=== PATIENT | female | born 1970 | race Caucasian/White ===

== ENCOUNTER → 2016-07-16 | Outpatient (CLI) | payer BC ==
[2016-05-26 14:20] VITALS: BP 120/62
[~2016-07-16] MED LIST: ALBU0.63 IH; ALPR2TAB5 PO; CHOL100013 PO; CIPR500T94 PO; CITA20TA5 PO; CYCL10TA2 PO; DICL75TA PO; FERR-26 PO; HYDR-2666 PO; L.AC1CAP6 PO; LOSA25TA4 PO; MECL25TA3 PO; METF500T4 PO; METH-39 PO; ONDA4TAB10 SL; PHEN-373 PO; PROAIR HFA8.5 GM INH; TAMS0.4C97 PO
--- NOTE | 2016-07-16 14:26 | RAD ---
Indication breast tenderness. The area of tenderness in the left breast was examined. The 12 to 3:00 position was evaluated as well the left axilla. No abnormality is seen. IMPRESSION: Normal targeted ultrasound evaluation of the left breast
--- NOTE | 2016-07-20 09:01 | RAD ---
DATE: 07/16/2016 EXAM: DIGITAL DIAGNOSTIC BILATERAL HISTORY: Left breast pain COMPARISON: 08/20/2014 This study was interpreted with the benefit of Computerized Aided Detection (CAD ). FINDINGS: The breast parenchyma shows scattered fibroglandular densities. Breast parenchyma level B. Biopsy clips are noted in the left breast. Asymmetric density in the left breast is unchanged. Overall a significant change in the appearance of the breasts is not seen. IMPRESSION: Benign findings BI-RADS CATEGORY: 2 BENIGN FINDING(S) RECOMMENDED FOLLOW-UP: 07/16/2017 PQRS compliance statement: Patient information was entered into a reminder system with a target due date for the next mammogram. Mammography is a sensitive method for finding small breast cancers, but it does not detect them all and is not a substitute for careful clinical examination. A negative mammogram does not negate a clinically suspicious finding and should not result in delay in biopsying a clinically suspicious abnormality. "Our facility is accredited by the [employer] Mammography Program." [facility]
== END | disposition home or self-care (01) ==
LOC: MAMMO 12:33
PROVIDERS: ATTEND Obstetrics & Gynecology
DX: N64.4 Mastodynia (principal)
CPT/HCPCS: 76641; G0204; 77066

== ENCOUNTER → 2017-07-16 | Outpatient (CLI) | payer OTHER | END | disposition home or self-care (01) | LOC: MAMMO 10:44 | DX: Z12.31 Encounter for screening mammogram for malignant neoplasm of breast (principal) | CPT/HCPCS: 77067 ==

== ENCOUNTER 2018-03-06 15:27 | Inpatient (IN) | payer OTHER ==
[~2018-03-06] VITALS: Ht 162.6 cm; Wt 96.4 kg
[~2018-03-06 15:27] MED LIST changes: -CITA20TA5 PO; +CITA20TA6 PO; -FERR-26 PO; +FERR325T14 PO; -HYDR-2666 PO; +HYDR-2758 PO; -LOSA25TA4 PO; +LOSA25TA5 PO; +METF500T16 PO; -METF500T4 PO; -PHEN-373 PO; +PHEN-444 PO
[2018-03-06 16:00] LABS: BASO % 0 % (0-3); EOS # 0.1 x10^3/uL (0.0-0.7); EOS % 1 % (0-3); HEMATOCRIT 44.7 % (36.0-47.0); HEMOGLOBIN 15.5 g/dL (12.0-15.5); LYMPH # 2.6 x10^3/uL (1.0-4.8); LYMPH % 32 % (24-48); MEAN CORPUSCULAR HEMOGLOBIN 29 pg (25-35); MEAN CORPUSCULAR HGB CONC 35 g/dL (31-37); MEAN CORPUSCULAR VOLUME 85 fL (79-100); MONO # 0.4 x10^3/uL (0.0-1.1); MONO % 5 % (0-9); NEUT # 5.2 x10^3uL (1.8-7.7); NEUT % 62 % (31-73); PLATELET COUNT 219 x10^3/uL (140-400); RED BLOOD COUNT 5.26 x10^6/uL (3.50-5.40); WHITE BLOOD COUNT 8.3 x10^3/uL (4.0-11.0)
[2018-03-06 16:06] LABS: CALCIUM 9.6 mg/dL (8.5-10.1); CREATININE 0.9 mg/dL (0.6-1.0); GFR 67.4; POTASSIUM 3.9 mmol/L (3.5-5.1)
--- NOTE | 2018-03-06 16:08 | PHYS DOC ---
Past Medical History Past Medical History: Anemia, Anxiety, Cancer, Diabetes-Type II, Hypertension Additional Past Medical Histor: Vertigo, Back/Neck Pain, Endometriosis, Sleep Apnea, Uterine Ca Past Surgical History: Hysterectomy, Tubal ligation Additional Past Surgical Histo: Bladder Sling, L1-L5 Fusion Alcohol Use: None Drug Use: None Adult General Chief Complaint Chief Complaint: CHEST PAIN HPI HPI Patient is a 47 year old female who presents with plane of left-sided substernal chest pain in the last 2 hours while shopping. Patient states she does have a history of high pretension as well as diabetes and is compliant with all of her medications. Patient states that she developed sharp pain lasting for seconds at a time occurring multiple episodes over about 20 minutes while shopping with radiation to her neck. Patient has had no previous neck injury or pain states she did have a history of lumbar disc fusion after breaking her back secondary to trauma. Patient states currently she is pain free and is here for further evaluation and management. Patient states she has no previous cardiac issues and has never had a cardiac workup. Review of Systems Review of Systems Constitutional: Denies fever or chills [] Eyes: Denies change in visual acuity, redness, or eye pain [] HENT: Denies nasal congestion or sore throat [] Respiratory: Denies cough or shortness of breath [] Cardiovascular: No additional information not addressed in HPI [] GI: Denies abdominal pain, nausea, vomiting, bloody stools or diarrhea [] : Denies dysuria or hematuria [] Musculoskeletal: Denies back pain or joint pain [] Integument: Denies rash or skin lesions [] Neurologic: Denies headache, focal weakness or sensory changes [] Endocrine: Denies polyuria or polydipsia [] All other systems were reviewed and found to be within normal limits, except as documented in this note. Current Medications Current Medications Current Medications Medications (Trade) Dose Ordered Sig/Jenifer Start Time Stop Time Status Last Admin Dose Admin Aspirin (Children'S Aspirin) 324 mg 1X ONCE 03/06/18 16:15 03/06/18 16:16 DC 03/06/18 16:36 324 MG Nitroglycerin (Nitrostat) 0.4 mg PRN Q5MIN PRN 03/06/18 16:15 Sodium Chloride 1,000 ml @ 125 mls/hr 1X ONCE 03/06/18 16:15 03/07/18 00:14 03/06/18 16:37 125 MLS/HR Allergies Allergies Allergies Coded Allergies Type Severity Reaction Last Updated Verified cinnamon Allergy Unknown Swelling 05/26/16 Yes Physical Exam Physical Exam Constitutional: Well developed, well nourished, no acute distress, non-toxic appearance. [] HENT: Normocephalic, atraumatic, bilateral external ears normal, oropharynx moist, no oral exudates, nose normal. [] Eyes: PERRLA, EOMI, conjunctiva normal, no discharge. [] Neck: Normal range of motion, no tenderness, supple, no stridor. [] Cardiovascular:Heart rate regular rhythm, no murmur [] Lungs & Thorax: Bilateral breath sounds clear to auscultation [] Abdomen: Bowel sounds normal, soft, no tenderness, no masses, no pulsatile masses. [] Skin: Warm, dry, no erythema, no rash. [] Back: No tenderness, no CVA tenderness. [] Extremities: No tenderness, no cyanosis, no clubbing, ROM intact, no edema. [] Neurologic: Alert and oriented X 3, normal motor function, normal sensory function, no focal deficits noted. [] Psychologic: Affect normal, judgement normal, mood normal. [] Current Patient Data Vital Signs Vital Signs Date Time Temp Pulse Resp B/P (MAP) Pulse Ox O2 Delivery O2 Flow Rate FiO2 03/06/18 15:43 97.8 92 20 140/85 (103) 93 Room Air 97.8 Lab Values Laboratory Tests Test 03/06/18 15:45 03/06/18 15:59 03/06/18 16:25 White Blood Count 8.3 x10^3/uL (4.0-11.0) Red Blood Count 5.26 x10^6/uL (3.50-5.40) Hemoglobin 15.5 g/dL (12.0-15.5) Hematocrit 44.7 % (36.0-47.0) Mean Corpuscular Volume 85 fL (79-100) Mean Corpuscular Hemoglobin 29 pg (25-35) Mean Corpuscular Hemoglobin Concent 35 g/dL (31-37) Red Cell Distribution Width 14.0 % (11.5-14.5) Platelet Count 219 x10^3/uL (140-400) Neutrophils (%) (Auto) 62 % (31-73) Lymphocytes (%) (Auto) 32 % (24-48) Monocytes (%) (Auto) 5 % (0-9) Eosinophils (%) (Auto) 1 % (0-3) Basophils (%) (Auto) 0 % (0-3) Neutrophils # (Auto) 5.2 x10^3uL (1.8-7.7) Lymphocytes # (Auto) 2.6 x10^3/uL (1.0-4.8) Monocytes # (Auto) 0.4 x10^3/uL (0.0-1.1) Eosinophils # (Auto) 0.1 x10^3/uL (0.0-0.7) Basophils # (Auto) 0.0 x10^3/uL (0.0-0.2) Sodium Level 142 mmol/L (136-145) Potassium Level 3.9 mmol/L (3.5-5.1) Chloride Level 106 mmol/L (98-107) Carbon Dioxide Level 24 mmol/L (21-32) Anion Gap 12 (6-14) 15 mmol/L (6-14) H Blood Urea Nitrogen 15 mg/dL (7-20) Creatinine 0.9 mg/dL (0.6-1.0) Estimated GFR (Cockcroft-Gault) 67.4 BUN/Creatinine Ratio 17 (6-20) Glucose Level 130 mg/dL (70-99) H 109 mg/dL (70-99) H Calcium Level 9.6 mg/dL (8.5-10.1) Total Bilirubin 0.3 mg/dL (0.2-1.0) Aspartate Amino Transferase (AST) 33 U/L (15-37) Alanine Aminotransferase (ALT) 57 U/L (14-59) Alkaline Phosphatase 80 U/L (46-116) Troponin I Quantitative < 0.017 ng/mL (0.000-0.055) Total Protein 7.6 g/dL (6.4-8.2) Albumin 3.6 g/dL (3.4-5.0) Albumin/Globulin Ratio 0.9 (1.0-1.7) L Glucose (Fingerstick) 112 mg/dL (70-99) H POC Hemoglobin 14.3 g/dL (12-15) POC Hematocrit 42 % (36-40) H POC Sodium 141 mmol/L (135-145) POC Potassium 4.6 mmol/L (3.5-5.0) POC Chloride 108 mmol/L (98-110) POC Total CO2 23 mmol/L (23-32) POC Blood Urea Nitrogen 18 mg/dL (8-26) POC Creatinine 0.6 mg/dL (0.5-1.4) POC Ionized Calcium (Matheus) 1.21 mmol/L (1.13-1.32) Laboratory Tests 03/06/18 15:45 Laboratory Tests 03/06/18 15:45 03/06/18 16:25 EKG EKG Normal sinus rhythm at a rate of 84[] Radiology/Procedures Radiology/Procedures [facility] [address] [place] [address] IMAGING REPORT Signed PATIENT: RAUDEL MORRIS ACCOUNT: [id number] : 1970 LOCATION: ER AGE: 47 SEX: F EXAM STATUS: REG ER ORD. PHYSICIAN: RAJAT BEATTY MD REASON: CP PROCEDURE: PORTABLE CHEST 1V EXAM: CHEST 1 VIEW History: Chest pain COMPARISON: 06/16/2007 TECHNIQUE: Single portable radiograph of the chest FINDINGS: The cardiac silhouette is unremarkable. The lungs are clear bilaterally. The costophrenic sulci are clear and well demarcated. IMPRESSION: No radiographic evidence of an acute cardiopulmonary process. Electronically signed by: Derrick Melendez MD (03/06/2018 4:33 PM) [facility] DICTATED and SIGNED BY: DERRICK MELENDEZ MD DATE: 03/06/18 1632 [] Course & Med Decision Making Course & Med Decision Making Pertinent Labs and Imaging studies reviewed. (See chart for details) [] Dragon Disclaimer Dragon Disclaimer This electronic medical record was generated, in whole or in part, using a voice recognition dictation system. Departure Departure Impression: Primary Impression: Chest pain Disposition: ADMITTED INPATIENT Admitting Physician: Vipul Álvarez Condition: STABLE Referrals: JEIMY RAYO (PCP) RAJAT BEATTY MD Mar 06, 2018 16:08
[2018-03-06 16:12] LABS: ALBUMIN 3.6 g/dL (3.4-5.0); ALBUMIN/GLOBULIN RATIO 0.9 (1.0-1.7); TOTAL BILIRUBIN 0.3 mg/dL (0.2-1.0); TOTAL PROTEIN 7.6 g/dL (6.4-8.2)
[2018-03-06] MEDS ORDERED: IV NORMAL SALINE 1000ML BAG 1,000 ML IV ONE (16:15)
[2018-03-06] MEDS ORDERED: NITROGLYCERIN SUBLINGUAL 0.4 MG BOTTLE OF 25. SL PRN ×2 (16:15→16:45)
[2018-03-06] MEDS ORDERED: ASPIRIN CHEWABLE 81 MG TABLET. PO ONE (16:15)
--- NOTE | 2018-03-06 16:28 | EKG ---
[facility] [address] [place] [address] Test Date: 2018-03-06 Test Time: 15:35:34 Pat Name: RAUDEL MORRIS Department: Room: Gender: F [employer]: : 1970 Requested By: RAJAT BEATTY Order Number: [id number] Reading MD: Bart Gaxiola MD Measurements Intervals [place] Rate: 83 P: 47 [place]: 130 QRS: 46 QRSD: 78 T: 44 QT: 360 QTc: 428 Interpretive Statements SINUS RHYTHM Electronically Signed On 03-07-2018 14:03:10 CDT by Bart Gaxiola MD
[2018-03-06 16:31] LABS: CREATININE ISTAT 0.6 mg/dL (0.5-1.4); HEMOGLOBIN ISTAT 14.3 g/dL (12-15); ION CA ISTAT 1.21 mmol/L (1.13-1.32); POTASSIUM ISTAT 4.6 mmol/L (3.5-5.0)
--- NOTE | 2018-03-06 16:37 | RAD ---
EXAM: CHEST 1 VIEW History: Chest pain COMPARISON: 06/16/2007 TECHNIQUE: Single portable radiograph of the chest FINDINGS: The cardiac silhouette is unremarkable. The lungs are clear bilaterally. The costophrenic sulci are clear and well demarcated. IMPRESSION: No radiographic evidence of an acute cardiopulmonary process. Electronically signed by: Derrick Melendez MD (03/06/2018 4:33 PM) [facility]
[2018-03-06] MEDS ORDERED: ONDANSETRON PF 4 MG/2 ML VIAL. IV PRN (16:45)
[2018-03-06] MEDS ORDERED: MORPHINE SULFATE 4 MG/ML VIAL. IV PRN (16:45)
[2018-03-06 16:50] LABS: BILIRUBIN,URINE NEGATIVE (NEG); CLARITY,URINE CLEAR; COLOR,URINE YELLOW; NITRITE,URINE NEGATIVE (NEG); PROTEIN,URINE NEGATIVE (NEG-TRACE)
[2018-03-06 17:04] LABS: BACTERIA,URINE FEW /HPF (0-FEW); RBC,URINE OCC /HPF (0-2); SQUAMOUS EPITHELIAL CELL,UR MOD /LPF; WBC,URINE OCC /HPF (0-4)
[2018-03-06] MEDS ORDERED: NON FORMULARY ITEM (Albuterol Sulfate (Proair Hfa Inhaler) 1 PUFF) INH PRN (17:15)
[2018-03-06] MEDS ORDERED: HYDROcodone/APAP 5/325MG 1 TAB TABLET PO PRN (17:15)
[2018-03-06] MEDS ORDERED: DEXTROSE 50% 25 GM / 50ML DISP.SYRIN. IV PRN (17:30)
[2018-03-06] MEDS ORDERED: ZOLPIDEM 5 MG TABLET. PO PRN (17:30)
[2018-03-06] MEDS ORDERED: PANTOPRAZOLE 40 MG TABLET.DR. PO ONE (17:30)
[2018-03-06] MEDS: PHENAZOPYRIDINE 200 MG TABLET. PO SCH ×2 (17:45→20:16)
[2018-03-06] MEDS ORDERED: MECLIZINE HCL 12.5 MG TABLET. PO PRN (17:45)
--- NOTE | 2018-03-06 17:47 | PDOC1 ---
History and Physical Date of Admission Date of Admission 03/06/18 Identification/Chief Complaint Chief Complaint chest pain Source Source: Chart review, Patient History of Present Illness History of Present Illness Patient is a 47 year old female came in complaining of left-sided substernal chest pain in the last 2 hours while shopping. Patient states she does have a history of HTN as well as diabetes takes medication regularly . Patient states that she developed sharp pain lasting for seconds at a time occurring multiple episodes over about 20 minutes while shopping with radiation to her neck. she had neck pain before but this was slightly different, she has a history of lumbar disc fusion after breaking her back secondary to trauma. she does not have any pain now. Patient states she has no previous cardiac issues and has never had a cardiac workup. Past Medical History Cardiovascular: HTN, Hyperlipidemia Pulmonary: Asthma, Other (sleep apnea , uses CPAP) CENTRAL NERVOUS SYSTEM: Vertigo, Other (vega's palsy) GI: Constipation, GERD, Irritable bowel disease Heme/Onc: Anemia NOS, Cancer (uterine had hysterectomy) Psych: Anxiety Rheumatologic: Other (DJD, neck pain, shoulder pain) Renal/: Other (kidneystone 2016, endometriosis) Endocrine: Diabetes Past Surgical History Past Surgical History: Cystoscopy, Tubal Ligation, Hysterectomy, Other (lumbar fusion, bladder sling) Family History Family History: Diabetes, Hypertension Social History Smoke: No ALCOHOL: occassional Drugs: None Current Problem List Problem List Problems Medical Problems: (1) Chest pain Status: Acute Current Medications Current Medications Current Medications Medications (Trade) Dose Ordered Sig/Jenifer Start Time Stop Time Status Last Admin Dose Admin Acetaminophen/ Hydrocodone Bitart (Lortab 5/325) 1 tab PRN Q6HRS PRN 03/06/18 17:15 Aspirin (Children'S Aspirin) 324 mg 1X ONCE 03/06/18 16:15 03/06/18 16:16 DC 03/06/18 16:36 324 MG Dextrose (Dextrose 50%-Water Syringe) 12.5 gm PRN Q15MIN PRN 03/06/18 17:30 Insulin Human Lispro (HumaLOG) 0-5 UNITS TIDWMEALS 03/07/18 08:00 UNV Losartan Potassium (Cozaar) 25 mg DAILY 03/07/18 09:00 UNV Morphine Sulfate (Morphine Sulfate) 4 mg PRN Q2HR PRN 03/06/18 16:45 03/07/18 16:44 Nitroglycerin (Nitrostat) 0.4 mg PRN Q5MIN PRN 03/06/18 16:45 03/07/18 16:44 Non-Formulary Medication (Albuterol Sulfate (Proair Hfa Inhaler)) 1 puff PRN Q6HRS PRN 03/06/18 17:15 UNV Non-Formulary Medication (Meclizine Hcl ) 25 mg PRN PRN 03/06/18 17:15 UNV Non-Formulary Medication (Metformin Hcl ) 1 tab QID 03/06/18 21:00 UNV Non-Formulary Medication (Phenazopyridine Hcl ) 1 tab BID 03/06/18 21:00 UNV Ondansetron HCl (Zofran) 4 mg PRN Q8HRS PRN 03/06/18 16:45 03/07/18 16:44 Pantoprazole Sodium (Protonix) 40 mg 1X ONCE 03/06/18 17:30 03/06/18 17:31 UNV Sodium Chloride 1,000 ml @ 100 mls/hr Q10H 03/06/18 16:41 03/07/18 16:40 Zolpidem Tartrate (Ambien) 5 mg PRN QHS PRN 03/06/18 17:30 Allergies Allergies Allergies Coded Allergies Type Severity Reaction Last Updated Verified cinnamon Allergy Unknown Swelling 05/26/16 Yes ROS Review of System CONSTITUTIONAL: No fever or chills EYES: No recent changes SKIN: No rash or itching CARDIOVASCULAR: + chest pain, NO syncope, palpitations, or edema RESPIRATORY: Mild SOB with exertion , No cough GASTROINTESTINAL: No nausea, vomiting or abdominal pain NEUROLOGICAL: No headaches or weakness ENDOCRINE: No cold or heat intolerance GENITOURINARY: No urgency or frequency of urination MUSCULOSKELETAL: mild back pain and neck pain , + shoulder oint pain LYMPHATICS: No enlarged lymph nodes Physical Exam Physical Exam GEN.: No apparent distress. Alert and oriented. HEENT: Head is normocephalic, atraumatic NECK: Supple. LUNGS: Clear to auscultation. HEART: RRR, S1, S2 present. Peripheral pulses intact ABDOMEN: Soft, nontender. Positive bowel sounds. EXTREMITIES: Without any cyanosis. NEUROLOGIC: Normal speech, normal tone PSYCHIATRIC: Normal affect, normal mood. SKIN: No ulcerations Vitals Vitals Vital Signs Date Time Temp Pulse Resp B/P (MAP) Pulse Ox O2 Delivery O2 Flow Rate FiO2 03/06/18 15:43 97.8 92 20 140/85 (103) 93 Room Air 97.8 Labs Labs Laboratory Tests Test 03/06/18 15:45 03/06/18 15:59 03/06/18 16:25 03/06/18 16:26 White Blood Count 8.3 x10^3/uL (4.0-11.0) Red Blood Count 5.26 x10^6/uL (3.50-5.40) Hemoglobin 15.5 g/dL (12.0-15.5) Hematocrit 44.7 % (36.0-47.0) Mean Corpuscular Volume 85 fL (79-100) Mean Corpuscular Hemoglobin 29 pg (25-35) Mean Corpuscular Hemoglobin Concent 35 g/dL (31-37) Red Cell Distribution Width 14.0 % (11.5-14.5) Platelet Count 219 x10^3/uL (140-400) Neutrophils (%) (Auto) 62 % (31-73) Lymphocytes (%) (Auto) 32 % (24-48) Monocytes (%) (Auto) 5 % (0-9) Eosinophils (%) (Auto) 1 % (0-3) Basophils (%) (Auto) 0 % (0-3) Neutrophils # (Auto) 5.2 x10^3uL (1.8-7.7) Lymphocytes # (Auto) 2.6 x10^3/uL (1.0-4.8) Monocytes # (Auto) 0.4 x10^3/uL (0.0-1.1) Eosinophils # (Auto) 0.1 x10^3/uL (0.0-0.7) Basophils # (Auto) 0.0 x10^3/uL (0.0-0.2) Sodium Level 142 mmol/L (136-145) Potassium Level 3.9 mmol/L (3.5-5.1) Chloride Level 106 mmol/L (98-107) Carbon Dioxide Level 24 mmol/L (21-32) Anion Gap 12 (6-14) 15 mmol/L (6-14) Blood Urea Nitrogen 15 mg/dL (7-20) Creatinine 0.9 mg/dL (0.6-1.0) Estimated GFR (Cockcroft-Gault) 67.4 BUN/Creatinine Ratio 17 (6-20) Glucose Level 130 mg/dL (70-99) 109 mg/dL (70-99) Calcium Level 9.6 mg/dL (8.5-10.1) Total Bilirubin 0.3 mg/dL (0.2-1.0) Aspartate Amino Transf (AST/SGOT) 33 U/L (15-37) Alanine Aminotransferase (ALT/SGPT) 57 U/L (14-59) Alkaline Phosphatase 80 U/L (46-116) Troponin I Quantitative < 0.017 ng/mL (0.000-0.055) Total Protein 7.6 g/dL (6.4-8.2) Albumin 3.6 g/dL (3.4-5.0) Albumin/Globulin Ratio 0.9 (1.0-1.7) Glucose (Fingerstick) 112 mg/dL (70-99) Bedside Hemoglobin 14.3 g/dL (12-15) Bedside Hematocrit 42 % (36-40) Bedside Sodium 141 mmol/L (135-145) Bedside Potassium 4.6 mmol/L (3.5-5.0) Bedside Chloride 108 mmol/L (98-110) Bedside Total CO2 23 mmol/L (23-32) Bedside Blood Urea Nitrogen 18 mg/dL (8-26) Bedside Creatinine 0.6 mg/dL (0.5-1.4) Bedside Ionized Calcium (Matheus) 1.21 mmol/L (1.13-1.32) Bedside Troponin I 0.00 ng/ml (<0.08) Test 03/06/18 16:38 Urine Color Yellow Urine Clarity Clear Urine pH 6.0 Urine Specific [place] 1.025 Urine Protein Negative mg/dL (NEG-TRACE) Urine Glucose (UA) 100 mg/dL (NEG) Urine Ketones (Stick) 15 mg/dL (NEG) Urine Blood Negative (NEG) Urine Nitrite Negative (NEG) Urine Bilirubin Negative (NEG) Urine Urobilinogen Dipstick 1.0 mg/dL (0.2 mg/dL) Urine Leukocyte Esterase Negative (NEG) Urine RBC Occ /HPF (0-2) Urine WBC Occ /HPF (0-4) Urine Squamous Epithelial Cells Mod /LPF Urine Bacteria Few /HPF (0-FEW) Laboratory Tests Test 03/06/18 15:45 03/06/18 15:59 03/06/18 16:25 03/06/18 16:26 White Blood Count 8.3 x10^3/uL (4.0-11.0) Red Blood Count 5.26 x10^6/uL (3.50-5.40) Hemoglobin 15.5 g/dL (12.0-15.5) Hematocrit 44.7 % (36.0-47.0) Mean Corpuscular Volume 85 fL (79-100) Mean Corpuscular Hemoglobin 29 pg (25-35) Mean Corpuscular Hemoglobin Concent 35 g/dL (31-37) Red Cell Distribution Width 14.0 % (11.5-14.5) Platelet Count 219 x10^3/uL (140-400) Neutrophils (%) (Auto) 62 % (31-73) Lymphocytes (%) (Auto) 32 % (24-48) Monocytes (%) (Auto) 5 % (0-9) Eosinophils (%) (Auto) 1 % (0-3) Basophils (%) (Auto) 0 % (0-3) Neutrophils # (Auto) 5.2 x10^3uL (1.8-7.7) Lymphocytes # (Auto) 2.6 x10^3/uL (1.0-4.8) Monocytes # (Auto) 0.4 x10^3/uL (0.0-1.1) Eosinophils # (Auto) 0.1 x10^3/uL (0.0-0.7) Basophils # (Auto) 0.0 x10^3/uL (0.0-0.2) Sodium Level 142 mmol/L (136-145) Potassium Level 3.9 mmol/L (3.5-5.1) Chloride Level 106 mmol/L (98-107) Carbon Dioxide Level 24 mmol/L (21-32) Anion Gap 12 (6-14) 15 mmol/L (6-14) Blood Urea Nitrogen 15 mg/dL (7-20) Creatinine 0.9 mg/dL (0.6-1.0) Estimated GFR (Cockcroft-Gault) 67.4 BUN/Creatinine Ratio 17 (6-20) Glucose Level 130 mg/dL (70-99) 109 mg/dL (70-99) Calcium Level 9.6 mg/dL (8.5-10.1) Total Bilirubin 0.3 mg/dL (0.2-1.0) Aspartate Amino Transf (AST/SGOT) 33 U/L (15-37) Alanine Aminotransferase (ALT/SGPT) 57 U/L (14-59) Alkaline Phosphatase 80 U/L (46-116) Troponin I Quantitative < 0.017 ng/mL (0.000-0.055) Total Protein 7.6 g/dL (6.4-8.2) Albumin 3.6 g/dL (3.4-5.0) Albumin/Globulin Ratio 0.9 (1.0-1.7) Glucose (Fingerstick) 112 mg/dL (70-99) Bedside Hemoglobin 14.3 g/dL (12-15) Bedside Hematocrit 42 % (36-40) Bedside Sodium 141 mmol/L (135-145) Bedside Potassium 4.6 mmol/L (3.5-5.0) Bedside Chloride 108 mmol/L (98-110) Bedside Total CO2 23 mmol/L (23-32) Bedside Blood Urea Nitrogen 18 mg/dL (8-26) Bedside Creatinine 0.6 mg/dL (0.5-1.4) Bedside Ionized Calcium (Matheus) 1.21 mmol/L (1.13-1.32) Bedside Troponin I 0.00 ng/ml (<0.08) Test 03/06/18 16:38 Urine Color Yellow Urine Clarity Clear Urine pH 6.0 Urine Specific [place] 1.025 Urine Protein Negative mg/dL (NEG-TRACE) Urine Glucose (UA) 100 mg/dL (NEG) Urine Ketones (Stick) 15 mg/dL (NEG) Urine Blood Negative (NEG) Urine Nitrite Negative (NEG) Urine Bilirubin Negative (NEG) Urine Urobilinogen Dipstick 1.0 mg/dL (0.2 mg/dL) Urine Leukocyte Esterase Negative (NEG) Urine RBC Occ /HPF (0-2) Urine WBC Occ /HPF (0-4) Urine Squamous Epithelial Cells Mod /LPF Urine Bacteria Few /HPF (0-FEW) VTE Prophylaxis Ordered VTE Prophylaxis Devices: Yes VTE Pharmacological Prophylaxi: No Assessment/Plan Assessment/Plan 1- Chest pain atypical could be muscloskeletal , admitted , serial troponin , cardiology consult 2-Sleep apnea uses CPAP 3-DM II 4-HTN 5-HLD 6- 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
[2018-03-06] MEDS ORDERED: ALBUTEROL SULFATE 2.5 MG/3 ML NEBU. NEB PRN (18:00)
[2018-03-06 18:49] VITALS: BP 133/83
[2018-03-06] MEDS: ATORVASTATIN CALCIUM 10 MG TABLET. PO SCH (20:15)
[2018-03-06] MEDS: IV NORMAL SALINE 1000ML BAG 1,000 ML IV SCH (20:16)
[2018-03-06] MEDS ORDERED: NON FORMULARY ITEM (Metformin Hcl 1 TAB) PO SCH (21:00)
[2018-03-06] MEDS: GLIMEPIRIDE 2 MG TABLET. PO SCH (21:30)
[2018-03-06 23:25] VITALS: BP 129/89
[2018-03-07 03:25] VITALS: BP 98/51
[2018-03-07] MEDS: IV NORMAL SALINE 1000ML BAG 1,000 ML IV SCH ×2 (03:58→12:41)
[2018-03-07 04:33] LABS: HEMATOCRIT 39.8 % (36.0-47.0); HEMOGLOBIN 13.3 g/dL (12.0-15.5); RED BLOOD COUNT 4.63 x10^6/uL (3.50-5.40); RED CELL DISTRIBUTION WIDTH 14.6 % (11.5-14.5); WHITE BLOOD COUNT 8.1 x10^3/uL (4.0-11.0)
[2018-03-07 04:51] LABS: CALCIUM 8.9 mg/dL (8.5-10.1); CREATININE 0.8 mg/dL (0.6-1.0); GFR 77.2; POTASSIUM 3.9 mmol/L (3.5-5.1)
[2018-03-07 07:00] VITALS: BP 116/75
[2018-03-07] MEDS ORDERED: metFORMIN 500 MG TABLET PO SCH (07:17)
[2018-03-07] MEDS: INSULIN LISPRO 300 UNITS/3 ML INSULN.PEN. SQ SCH ×2 (08:00→12:00)
[2018-03-07] MEDS ORDERED: GLIMEPIRIDE 2 MG TABLET. PO SCH (08:00)
[2018-03-07] MEDS ORDERED: ESTRADIOL 1 MG TABLET. PO SCH (09:00)
[2018-03-07] MEDS ORDERED: LOSARTAN POTASSIUM 50 MG TABLET. PO SCH (09:00)
[2018-03-07] MEDS ORDERED: LOSARTAN POTASSIUM 25 MG TABLET. PO SCH (09:00)
[2018-03-07] MEDS ORDERED: CYANOCOBALAMIN (VITAMIN B-12) 1,000 MCG TABLET. PO SCH (09:00)
--- NOTE | 2018-03-07 09:30 | PDOC2 ---
CARDIAC CONSULT DATE OF CONSULT Date of Consult DATE: 03/07/18 TIME: 09:24 REASON FOR CONSULT Reason for Consult: Chest Pain REFERRING PHYSICIAN Referring Physician: Dr. Álvarez SOURCE Source: Chart review, Patient HISTORY OF PRESENT ILLNESS HISTORY OF PRESENT ILLNESS This is a 47 yo female who presented with complaints of chest pain. Patient reports she was out grocery shopping with daughter yesterday afternoon when pain began. Located in her left chest. Describes as stabbing, shooting, and dull. Associated with dizziness, diaphoresis, and left arm tingling. Does reports that she was experienced bilateral hand tingling/number over the last couple of weeks. No SOA, palpitation, or nausea/vomiting. Has noticed some fatigue over the last couple of weeks. Reports pain would come and go every 30 minutes or so, lasting a few seconds each time. No specific exacerbating or relieving factors. Is reproducible by applying pressure to the left chest. Produces stabbing pain. PAST MEDICAL HISTORY Cardiovascular: HTN, Hyperlipidemia Pulmonary: Asthma, Other (REAL) CENTRAL NERVOUS SYSTEM: Other ([place] Palsy) Heme/Onc: Cancer (uterine) Psych: Anxiety Endocrine: Diabetes PAST SURGICAL HISTORY Past Surgical History: Tubal Ligation, Hysterectomy, Other (spinal fusion (L1- L5), bladder sling) FAMILY HISTORY Family History: Coronary Artery Disease, Diabetes, Hypertension SOCIAL HISTORY Smoke: No ALCOHOL: none Drugs: None Lives: with Family CURRENT MEDICATIONS CURRENT MEDICATIONS Current Medications Medications (Trade) Dose Ordered Sig/Jenifer Route PRN Reason Start Time Stop Time Status Last Admin Dose Admin Aspirin (Children'S Aspirin) 324 mg 1X ONCE PO 03/06/18 16:15 03/06/18 16:16 DC 03/06/18 16:36 Sodium Chloride 1,000 ml @ 125 mls/hr 1X ONCE IV 03/06/18 16:15 03/07/18 00:14 DC 03/06/18 16:37 Sodium Chloride 1,000 ml @ 100 mls/hr Q10H IV 03/06/18 16:41 03/07/18 16:40 03/07/18 03:58 Phenazopyridine HCl (Pyridium) 200 mg BID PO 03/06/18 17:45 03/06/18 20:16 Pantoprazole Sodium (Protonix) 40 mg 1X ONCE PO 03/06/18 17:30 03/06/18 17:45 DC 03/06/18 20:14 Albuterol Sulfate (Ventolin Neb Soln) 2.5 mg PRN Q6HRS PRN NEB SHORTNESS OF BREATH 03/06/18 18:00 03/06/18 20:36 Glimepiride (Amaryl) 4 mg BIDWMEALS PO 03/06/18 21:00 03/06/18 21:30 Metformin HCl (Glucophage) 1,000 mg BIDWMEALS PO 03/06/18 21:00 03/07/18 07:17 DC 03/06/18 21:27 ALLERGIES ALLERGIES: Coded Allergies: cinnamon (Verified Allergy, Intermediate, Swelling, 03/06/18) ROS Review of System 14 point ROS conducted with pertinent positives noted above in HPI. PHYSICAL EXAM General: Alert, Oriented X3, Cooperative, No acute distress HEENT: Atraumatic, Mucous membr. moist/pink Lungs: Clear to auscultation, Normal air movement, Other (tenderness upon palpation of left chest.) Heart: Regular rate, Normal S1, Normal S2 Abdomen: Soft, No tenderness Extremities: No edema, Normal pulses Skin: No breakdown, No significant lesion Neuro: Normal speech, Sensation intact Psych/Mental Status: Mental status NL, Mood NL MUSCULOSKELETAL: No deformity VITALS VITALS Vital Signs Date Time Temp Pulse Resp B/P (MAP) Pulse Ox O2 Delivery O2 Flow Rate FiO2 03/07/18 07:00 96.1 73 16 116/75 (89) 98 BiPAP/CPAP 96.1 LABS Lab: Laboratory Tests Test 03/06/18 15:45 03/06/18 15:59 03/06/18 16:25 03/06/18 16:26 White Blood Count 8.3 x10^3/uL (4.0-11.0) Red Blood Count 5.26 x10^6/uL (3.50-5.40) Hemoglobin 15.5 g/dL (12.0-15.5) Hematocrit 44.7 % (36.0-47.0) Mean Corpuscular Volume 85 fL (79-100) Mean Corpuscular Hemoglobin 29 pg (25-35) Mean Corpuscular Hemoglobin Concent 35 g/dL (31-37) Red Cell Distribution Width 14.0 % (11.5-14.5) Platelet Count 219 x10^3/uL (140-400) Neutrophils (%) (Auto) 62 % (31-73) Lymphocytes (%) (Auto) 32 % (24-48) Monocytes (%) (Auto) 5 % (0-9) Eosinophils (%) (Auto) 1 % (0-3) Basophils (%) (Auto) 0 % (0-3) Neutrophils # (Auto) 5.2 x10^3uL (1.8-7.7) Lymphocytes # (Auto) 2.6 x10^3/uL (1.0-4.8) Monocytes # (Auto) 0.4 x10^3/uL (0.0-1.1) Eosinophils # (Auto) 0.1 x10^3/uL (0.0-0.7) Basophils # (Auto) 0.0 x10^3/uL (0.0-0.2) Sodium Level 142 mmol/L (136-145) Potassium Level 3.9 mmol/L (3.5-5.1) Chloride Level 106 mmol/L (98-107) Carbon Dioxide Level 24 mmol/L (21-32) Anion Gap 12 (6-14) 15 mmol/L (6-14) Blood Urea Nitrogen 15 mg/dL (7-20) Creatinine 0.9 mg/dL (0.6-1.0) Estimated GFR (Cockcroft-Gault) 67.4 BUN/Creatinine Ratio 17 (6-20) Glucose Level 130 mg/dL (70-99) 109 mg/dL (70-99) Calcium Level 9.6 mg/dL (8.5-10.1) Total Bilirubin 0.3 mg/dL (0.2-1.0) Aspartate Amino Transf (AST/SGOT) 33 U/L (15-37) Alanine Aminotransferase (ALT/SGPT) 57 U/L (14-59) Alkaline Phosphatase 80 U/L (46-116) Troponin I Quantitative < 0.017 ng/mL (0.000-0.055) Total Protein 7.6 g/dL (6.4-8.2) Albumin 3.6 g/dL (3.4-5.0) Albumin/Globulin Ratio 0.9 (1.0-1.7) Glucose (Fingerstick) 112 mg/dL (70-99) Bedside Hemoglobin 14.3 g/dL (12-15) Bedside Hematocrit 42 % (36-40) Bedside Sodium 141 mmol/L (135-145) Bedside Potassium 4.6 mmol/L (3.5-5.0) Bedside Chloride 108 mmol/L (98-110) Bedside Total CO2 23 mmol/L (23-32) Bedside Blood Urea Nitrogen 18 mg/dL (8-26) Bedside Creatinine 0.6 mg/dL (0.5-1.4) Bedside Ionized Calcium (Matheus) 1.21 mmol/L (1.13-1.32) Bedside Troponin I 0.00 ng/ml (<0.08) Test 03/06/18 16:38 03/06/18 17:19 03/06/18 19:25 03/06/18 20:47 Urine Color Yellow Urine Clarity Clear Urine pH 6.0 Urine Specific [place] 1.025 Urine Protein Negative mg/dL (NEG-TRACE) Urine Glucose (UA) 100 mg/dL (NEG) Urine Ketones (Stick) 15 mg/dL (NEG) Urine Blood Negative (NEG) Urine Nitrite Negative (NEG) Urine Bilirubin Negative (NEG) Urine Urobilinogen Dipstick 1.0 mg/dL (0.2 mg/dL) Urine Leukocyte Esterase Negative (NEG) Urine RBC Occ /HPF (0-2) Urine WBC Occ /HPF (0-4) Urine Squamous Epithelial Cells Mod /LPF Urine Bacteria Few /HPF (0-FEW) D-Dimer (Yuridia) 0.43 ug/mlFEU (0.00-0.50) Troponin I Quantitative < 0.017 ng/mL (0.000-0.055) Glucose (Fingerstick) 166 mg/dL (70-99) Test 03/06/18 22:30 03/07/18 04:05 03/07/18 04:08 03/07/18 07:23 Troponin I Quantitative < 0.017 ng/mL (0.000-0.055) Erythrocyte Sedimentation Rate 7 (0-25) Sodium Level 145 mmol/L (136-145) Potassium Level 3.9 mmol/L (3.5-5.1) Chloride Level 109 mmol/L (98-107) Carbon Dioxide Level 23 mmol/L (21-32) Anion Gap 13 (6-14) Blood Urea Nitrogen 14 mg/dL (7-20) Creatinine 0.8 mg/dL (0.6-1.0) Estimated GFR (Cockcroft-Gault) 77.2 Glucose Level 121 mg/dL (70-99) Calcium Level 8.9 mg/dL (8.5-10.1) White Blood Count 8.1 x10^3/uL (4.0-11.0) Red Blood Count 4.63 x10^6/uL (3.50-5.40) Hemoglobin 13.3 g/dL (12.0-15.5) Hematocrit 39.8 % (36.0-47.0) Mean Corpuscular Volume 86 fL (79-100) Mean Corpuscular Hemoglobin 29 pg (25-35) Mean Corpuscular Hemoglobin Concent 33 g/dL (31-37) Red Cell Distribution Width 14.6 % (11.5-14.5) Platelet Count 184 x10^3/uL (140-400) Glucose (Fingerstick) 115 mg/dL (70-99) ASSESSMENT/PLAN ASSESSMENT/PLAN 1. Chest pain, mixed features. Troponin series normal- AMI ruled out. 2. Hypertension; controlled 3. Hyperlipidemia; statin therapy 4. Diabetes, II; controlled 5. REAL Recommendations Add ASA. Continue statin, ARB. Check lipid Given risk factors, will proceed with MPI to r/o ischemia. If negative for acute changes, may discharge from a cardiac standpoint. NISREEN PIPER APRN Mar 07, 2018 09:30
[2018-03-07] MEDS ORDERED: ASPIRIN ENTERIC COATED 81 MG TABLET.DR. PO SCH (10:00)
[2018-03-07 10:07] LABS: CHOLESTEROL/HDL RATIO 4.6
[2018-03-07] MEDS ORDERED: REGADENOSON 0.4 MG/5 ML DISP.SYRIN. IV ONE (10:15)
[2018-03-07 11:00] VITALS: BP 141/86
--- NOTE | 2018-03-07 13:00 | RAD ---
MR#: [id number] Date of Study: 03/07/2018 Ordering Physician: NISREEN PIPER, Referring Physician: ANDREW BHARDWAJ Tech: VINEET Reynolds APPROVED REPORT Test Type: Pharmacological Stress Nurse/Tech: Gloria Alexis RN Test Indications: Chest pain with left arm numbness Cardiac History: Family history, Hypertension, Diabetes,asthma Medications: See Electronic Medical Record Medical History: See Electronic Medical Record Resting ECG: SR with PAC's Resting Heart Rate: 88 bpm Resting Blood Pressure: 131/88mmHg Pretest Chest Pain: No chest pain Nurse/Tech Notes S1,S2 and lungs are diminished in the bases. Consent: The procedure was explained to the patient in lay terms. Informed consent was witnessed. Jossue eout was entered into [employer]. History and Stress Test performed by VINEET Reynolds Pharm. Details Pharmacologic stress testing was performed using 0.4mg per 5ml of regadenoson given intravenously ove r 7-10 seconds. Stress Symptoms Headache,chest tightness POST EXERCISE Reason for Termination: Infusion complete Target HR: No Max HR: 147 bpm Max Blood Pressure: 139/89mmHg Blood Pressure response to exercise: Normal blood pressure response during stress. Heart Rate response to exercise: WNL Chest Pain: Yes. See note above. Arrhythmia: Yes. PAC ST Change: No. INTERPRETATION Stress EKG Conclusion: No evidence of stress induced EKG changes. Imaging Protocol IMAGE PROTOCOL: Rest Tc-99m/stress Tc-99m 1 day Rest: Stress: Viability: Radiopharm.Tc99m IgkgybaumLc91g Sestamibi Dose11.8mCi 35mCi Duration 17min. 13min. Img Date 03/07/2018 03/07/2018 Inj-Img Hliz48jyd. 60min. Rest Admin Site:IV - Right AntecubitalAdministrator:VINEET Reynolds Stress Admin Site: IV - Right AntecubitalAdministrator: MACY Linares, ARRT (R)(N) STRESS DATA End Diast. Vol.61.0mlLVEDV index BSA30.0ml End Syst. Vol.12.0mlLVESV index BSA6.0ml Myocardial Pwej597.0gEject. Dkxnjrgq31.0% Stress Scores Regional WT0.00Summed WT0.00 Regional WM0.00Summed WM0.00 The rest and stress images show normal perfusion, normal contraction and thickening. LV Perf. Quant 17 Seg. SSS1.00 17 Seg. SRS5.00 17 Seg. SDS0.00 Stress Defect Extent (% LAD)0.00Rest Defect Extent (% LAD)3.80Rev. Defect Extent (% LAD)0.00 Stress Defect Extent (% LCX) 0.00Rest Defect Extent (% LCX)18.80Rev. Defect Extent (% LCX)0.00 Stress Defect Extent (% RCA)0.00Rest Defect Extent (% RCA)2.20Rev. Defect Extent (% RCA)0.00 Stress Defect Extent (% KRYSTA)0.00Rest Defect Extent (% KRYSTA)10.20Rev. Defect Extent (% KRYSTA)0.00 Other Information Quality:Good Risk Assessment: Low Risk Conclusion 1. No evidence of EKG changes with stress testing. 2. Normal perfusion at stress/rest. 3. Low risk study. 4. EF > 60%. Signed by : Bart Gaxiola, Electronically Approved : 03/07/2018 12:58:34
[2018-03-07 15:00] VITALS: BP 124/76
[2018-03-07 15:34] VITALS: BP 141/86
[2018-03-07] MEDS: GLIMEPIRIDE 2 MG TABLET. PO SCH (15:35)
[2018-03-07] MEDS: PHENAZOPYRIDINE 200 MG TABLET. PO SCH (15:35)
[2018-03-07] MEDS ORDERED: ATOR10TA60 PO (15:44)
[2018-03-07] MEDS ORDERED: ASPI325T8 PO (15:46)
[2018-03-07] MEDS ORDERED: ALBUTEROL SULFATE 2.5 MG/3 ML NEBU. NEB ONE (16:15)
== END 2018-03-07 18:50 | disposition home or self-care (01) | DRG 313 ==
LOC: ER 15:27 → 6 SOUTH 16:00
PROVIDERS: ADMIT Internal Medicine; ATTEND Internal Medicine
DX: R07.89 Other chest pain (principal); I10 Essential (primary) hypertension; E11.9 Type 2 diabetes mellitus without complications; F41.9 Anxiety disorder, unspecified; D64.9 Anemia, unspecified; G47.33 Obstructive sleep apnea (adult) (pediatric); J45.909 Unspecified asthma, uncomplicated; K21.9 Gastro-esophageal reflux disease without esophagitis; M19.90 Unspecified osteoarthritis, unspecified site; G51.0 Bell's palsy; E78.5 Hyperlipidemia, unspecified; M47.896 Other spondylosis, lumbar region; Z98.1 Arthrodesis status; Z90.710 Acquired absence of both cervix and uterus; Z85.42 Personal history of malignant neoplasm of other parts of uterus; Z98.51 Tubal ligation status; Z83.3 Family history of diabetes mellitus; Z82.49 Family history of ischemic heart disease and other diseases of the circulatory system
CPT/HCPCS: 36415; 71045; 78452; 80047; 80048; 80053; 80061; 81001; 82962; 84484; 85025; 85027; 85379; 85651; 93005; 93017; 94640; 94660; 95811; 96360; 96374; 96375; 96376; A9500; J1815; J2785; J7030; J7613; 99285-25

== ENCOUNTER 2019-09-04 10:48 | Emergency (ER) | payer OTHER ==
[~2019-09-04] VITALS: Ht 162.6 cm; Wt 94.0 kg
[~2019-09-04 10:48] MED LIST changes: +ALBU2.5V8 INH; +ASPI325T8 PO; +ATOR10TA60 PO; -HYDR-2758 PO; +HYDR-2761 PO; -LOSA25TA5 PO; +LOSA25TA54 PO; +MECL-75 PO; -MECL25TA3 PO; -PROAIR HFA8.5 GM INH
[2019-09-04] MEDS ORDERED: NITROGLYCERIN SUBLINGUAL 0.4 MG BOTTLE OF 25. SL PRN (11:15)
[2019-09-04] MEDS ORDERED: ASPIRIN 325 MG TABLET PO ONE (11:15)
[2019-09-04] MEDS ORDERED: MORPHINE SULFATE 4 MG/ML VIAL. IV/SQ PRN (11:15)
--- NOTE | 2019-09-04 11:30 | EKG ---
[facility] [address] [place] [address] Test Date: 2019-09-04 Test Time: 10:56:59 Pat Name: RAUDEL MORRIS Department: Room: Gender: F [employer]: : 1970 Requested By: JESSICA BRANDON Order Number: [id number] Reading MD: Measurements Intervals Sinclair Rate: 77 P: 38 SD: 148 QRS: -1 QRSD: 80 T: 20 QT: 388 QTc: 441 Interpretive Statements SINUS RHYTHM LEFTWARD AXIS OTHERWISE NORMAL ECG RI6.01 No previous ECG available for comparison
--- NOTE | 2019-09-04 11:32 | PHYS DOC ---
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 (JESSICA BRANDON APRN) Past Surgical History: Hysterectomy, Tubal ligation Additional Past Surgical Histo: Bladder Sling, L1-L5 Fusion (JESSICA BRANDON APRN) Smoking Status: Never Smoker Alcohol Use: Occasionally Drug Use: None (JESSICA BRANDON APRN) Adult General Chief Complaint Chief Complaint: CHEST WALL PAIN HPI HPI Patient is a 48 year old female with history of diabetes type 2, hypertension, high cholesterol, overweight, anemia, anxiety, asthma, who presents to the ED today complaining of a sharp 8 out of 10 substernal chest pain radiating to her back, symptoms began 30 minutes prior to coming to the ED was bathing her dog. Patient denies any specific activity exacerbating or relieving his pain. Denies any fever. (JESSICA BRANDON APRN) Review of Systems Review of Systems Constitutional: Denies fever or chills [] Eyes: Denies change in visual acuity, redness, or eye pain [] HENT: Denies nasal congestion or sore throat [] Respiratory: Denies cough or shortness of breath [] Cardiovascular: Reports chest pain. No additional information not addressed in HPI [] GI: Denies abdominal pain, nausea, vomiting, bloody stools or diarrhea [] : Denies dysuria or hematuria [] Musculoskeletal: Denies back pain or joint pain [] Integument: Denies rash or skin lesions [] Neurologic: Denies headache, focal weakness or sensory changes [] All other systems were reviewed and found to be within normal limits, except as documented in this note. (JESSICA BRANDON APRN) Current Medications Current Medications Current Medications Medications (Trade) Dose Ordered Sig/Jenifer Start Time Stop Time Status Last Admin Dose Admin Aspirin (Mary Jo Aspirin) 325 mg 1X ONCE 09/04/19 11:15 09/04/19 11:17 DC 09/04/19 11:31 325 MG Morphine Sulfate (Morphine Sulfate) 4 mg PRN Q15MIN PRN 09/04/19 11:15 09/04/19 13:35 DC Nitroglycerin (Nitrostat) 0.4 mg PRN Q5MIN PRN 09/04/19 11:15 09/04/19 13:35 DC 09/04/19 11:32 0.4 MG (MELANIE,RACHAEL E DO) Allergies Allergies Allergies Coded Allergies Type Severity Reaction Last Updated Verified cinnamon Allergy Intermediate Swelling 03/06/18 Yes (MELANIE,RACHAEL E DO) Physical Exam Physical Exam Constitutional: Well developed, well nourished, no acute distress, non-toxic appearance. [] HENT: Normocephalic, atraumatic, bilateral external ears normal, oropharynx moist, no oral exudates, nose normal. [] Eyes: PERRLA, EOMI, conjunctiva normal, no discharge. [] Neck: Normal range of motion, no tenderness, supple, no stridor. [] Cardiovascular:Heart rate regular rhythm, no murmur [] Lungs & Thorax: Bilateral breath sounds clear to auscultation [] Abdomen: Bowel sounds normal, soft, no tenderness, no masses, no pulsatile masses. [] Skin: Warm, dry, no erythema, no rash. [] Back: No tenderness, no CVA tenderness. [] Extremities: No tenderness, no cyanosis, no clubbing, ROM intact, no edema. [] Neurologic: Alert and oriented X 3, normal motor function, normal sensory function, no focal deficits noted. [] Psychologic: Affect normal, judgement normal, mood normal. [] (JESSICA BRANDON APRN) Current Patient Data Vital Signs Vital Signs Date Time Temp Pulse Resp B/P (MAP) Pulse Ox O2 Delivery O2 Flow Rate FiO2 09/04/19 12:52 72 18 118/74 (89) 95 Room Air 09/04/19 10:53 98.1 98.1 (MELANIE,RACHAEL E DO) Lab Values Laboratory Tests Test 09/04/19 11:02 White Blood Count 7.1 x10^3/uL (4.0-11.0) Red Blood Count 5.17 x10^6/uL (3.50-5.40) Hemoglobin 14.8 g/dL (12.0-15.5) Hematocrit 44.5 % (36.0-47.0) Mean Corpuscular Volume 86 fL (79-100) Mean Corpuscular Hemoglobin 29 pg (25-35) Mean Corpuscular Hemoglobin Concent 33 g/dL (31-37) Red Cell Distribution Width 14.7 % (11.5-14.5) H Platelet Count 216 x10^3/uL (140-400) Neutrophils (%) (Auto) 57 % (31-73) Lymphocytes (%) (Auto) 35 % (24-48) Monocytes (%) (Auto) 6 % (0-9) Eosinophils (%) (Auto) 1 % (0-3) Basophils (%) (Auto) 1 % (0-3) Neutrophils # (Auto) 4.0 x10^3/uL (1.8-7.7) Lymphocytes # (Auto) 2.5 x10^3/uL (1.0-4.8) Monocytes # (Auto) 0.4 x10^3/uL (0.0-1.1) Eosinophils # (Auto) 0.1 x10^3/uL (0.0-0.7) Basophils # (Auto) 0.1 x10^3/uL (0.0-0.2) D-Dimer (Yuridia) 0.35 ug/mlFEU (0.00-0.50) Sodium Level 139 mmol/L (136-145) Potassium Level 4.0 mmol/L (3.5-5.1) Chloride Level 105 mmol/L (98-107) Carbon Dioxide Level 22 mmol/L (21-32) Anion Gap 12 (6-14) Blood Urea Nitrogen 12 mg/dL (7-20) Creatinine 0.7 mg/dL (0.6-1.0) Estimated GFR (Cockcroft-Gault) 89.7 BUN/Creatinine Ratio 17 (6-20) Glucose Level 172 mg/dL (70-99) H Calcium Level 8.9 mg/dL (8.5-10.1) Magnesium Level 1.7 mg/dL (1.8-2.4) L Total Bilirubin 0.5 mg/dL (0.2-1.0) Aspartate Amino Transferase (AST) 31 U/L (15-37) Alanine Aminotransferase (ALT) 51 U/L (14-59) Alkaline Phosphatase 74 U/L (46-116) Creatine Kinase 46 U/L (26-192) Creatine Kinase MB (Mass) 0.5 ng/mL (0.0-3.6) Creatine Kinase MB Relative Index % (0-4) Troponin I Quantitative < 0.017 ng/mL (0.000-0.055) PY-Ujr-S-Type Natriuretic Peptide 6 pg/mL (0-124) Total Protein 6.6 g/dL (6.4-8.2) Albumin 3.6 g/dL (3.4-5.0) Albumin/Globulin Ratio 1.2 (1.0-1.7) Lipase 114 U/L (73-393) Thyroid Stimulating Hormone (TSH) 1.341 uIU/mL (0.358-3.74) Laboratory Tests 09/04/19 11:02 Laboratory Tests 09/04/19 11:02 (RACHAEL NAVARRO E ) Lab Values Laboratory Tests Test 09/04/19 11:02 White Blood Count 7.1 x10^3/uL (4.0-11.0) Red Blood Count 5.17 x10^6/uL (3.50-5.40) Hemoglobin 14.8 g/dL (12.0-15.5) Hematocrit 44.5 % (36.0-47.0) Mean Corpuscular Volume 86 fL (79-100) Mean Corpuscular Hemoglobin 29 pg (25-35) Mean Corpuscular Hemoglobin Concent 33 g/dL (31-37) Red Cell Distribution Width 14.7 % (11.5-14.5) H Platelet Count 216 x10^3/uL (140-400) Neutrophils (%) (Auto) 57 % (31-73) Lymphocytes (%) (Auto) 35 % (24-48) Monocytes (%) (Auto) 6 % (0-9) Eosinophils (%) (Auto) 1 % (0-3) Basophils (%) (Auto) 1 % (0-3) Neutrophils # (Auto) 4.0 x10^3/uL (1.8-7.7) Lymphocytes # (Auto) 2.5 x10^3/uL (1.0-4.8) Monocytes # (Auto) 0.4 x10^3/uL (0.0-1.1) Eosinophils # (Auto) 0.1 x10^3/uL (0.0-0.7) Basophils # (Auto) 0.1 x10^3/uL (0.0-0.2) D-Dimer (Yuridia) 0.35 ug/mlFEU (0.00-0.50) Sodium Level 139 mmol/L (136-145) Potassium Level 4.0 mmol/L (3.5-5.1) Chloride Level 105 mmol/L (98-107) Carbon Dioxide Level 22 mmol/L (21-32) Anion Gap 12 (6-14) Blood Urea Nitrogen 12 mg/dL (7-20) Creatinine 0.7 mg/dL (0.6-1.0) Estimated GFR (Cockcroft-Gault) 89.7 BUN/Creatinine Ratio 17 (6-20) Glucose Level 172 mg/dL (70-99) H Calcium Level 8.9 mg/dL (8.5-10.1) Magnesium Level 1.7 mg/dL (1.8-2.4) L Total Bilirubin 0.5 mg/dL (0.2-1.0) Aspartate Amino Transferase (AST) 31 U/L (15-37) Alanine Aminotransferase (ALT) 51 U/L (14-59) Alkaline Phosphatase 74 U/L (46-116) Creatine Kinase 46 U/L (26-192) Creatine Kinase MB (Mass) 0.5 ng/mL (0.0-3.6) Creatine Kinase MB Relative Index % (0-4) Troponin I Quantitative < 0.017 ng/mL (0.000-0.055) MI-Bgq-C-Type Natriuretic Peptide 6 pg/mL (0-124) Total Protein 6.6 g/dL (6.4-8.2) Albumin 3.6 g/dL (3.4-5.0) Albumin/Globulin Ratio 1.2 (1.0-1.7) Lipase 114 U/L (73-393) Thyroid Stimulating Hormone (TSH) 1.341 uIU/mL (0.358-3.74) Laboratory Tests 09/04/19 11:02 Laboratory Tests 09/04/19 11:02 (JESSICA BRANDON APRN) EKG EKG [address] Benitez sinus rhythm HR 77 no STEMI (JESSICA BRANDON APRN) Radiology/Procedures Radiology/Procedures [] (JESSICA BRANDON APRN) Course & Med Decision Making Course & Med Decision Making Pertinent Labs and Imaging studies reviewed. (See chart for details) This is a 48-year-old female patient presenting to the ED today with complaints of chest pain, symptoms began 30 minutes prior to coming to the ED while she was washing her dog. Heart score-3 CBC, CMP, troponin, d-dimer-no acute findings, vitals are very stable with blood pressures in the 120s over 60s. Heart rate in the 70s. Please also given to patient, she started stating that a week ago she lifted a case of Gatorade and developed mid back pain that radiated to the chest. She states she's had chronic back pain which could be the source of her pain today. Considering her low heart score I recommended following up with the primary care doctor and leather lacer. She was given return precautions. Provided prescription for muscle relaxers. Provided return precautions and discharged in stable condition. (JESSICA BRANDON APRN) Dragon Disclaimer Dragon Disclaimer This electronic medical record was generated, in whole or in part, using a voice recognition dictation system. (JESSICA BRANDON APRN) The HEART Score for CP Pts HEART Score for Chest Pain: HEART Score for Chest Pain Response (Comments) Value History Slighlty/Non-Suspicious 0 ECG Normal 0 Age >45 - < 65 1 Risk Factors >3 Risk Factors or Hx CAD 2 Troponin < Normal Limit 0 Total 3 Risk Factors: Risk Factors: DM, Current or recent (<one month) smoker, HTN, HLP, family history of CAD, obesity. Risk Scores: Score 0 - 3: 2.5% MACE over next 6 weeks - Discharge Home Score 4 - 6: 20.3% MACE over next 6 weeks - Admit for Clinical Observation Score 7 - 10: 72.7% MACE over next 6 weeks - Early Invasive Strategies (JESSICA BRANDON APRN) Attending Signature I have participated in the care of this patient and I have reviewed and agree with all pertinent clinical information above including history, exam, and recommendations. (RACHAEL NAVARRO DO) Departure Departure Impression: Primary Impression: Chest pain Disposition: HOME, SELF-CARE Condition: STABLE Referrals: JEIMY RAYO (PCP) Follow up in one week Patient Instructions: Chest Pain (Nonspecific), Gwov-td-Hvie Additional Instructions: You were seen in the emergency room for chest pain, your cardiac workup is negative. We highly recommend you follow-up with your primary care doctor as well as the leather lacer's provided. Come back to the ED at any point symptoms worsen. Problem Qualifiers Primary Impression: Chest pain Chest pain type: unspecified Qualified Codes: R07.9 - Chest pain, unspecified JESSICA BRANDON APRN Sep 04, 2019 11:32 RACHAEL NAVARRO DO Sep 05, 2019 07:32
[2019-09-04 11:35] LABS: BASO # 0.1 x10^3/uL (0.0-0.2); BASO % 1 % (0-3); EOS # 0.1 x10^3/uL (0.0-0.7); EOS % 1 % (0-3); HEMATOCRIT 44.5 % (36.0-47.0); HEMOGLOBIN 14.8 g/dL (12.0-15.5); LYMPH # 2.5 x10^3/uL (1.0-4.8); LYMPH % 35 % (24-48); MEAN CORPUSCULAR HEMOGLOBIN 29 pg (25-35); MEAN CORPUSCULAR HGB CONC 33 g/dL (31-37); MEAN CORPUSCULAR VOLUME 86 fL (79-100); MONO # 0.4 x10^3/uL (0.0-1.1); MONO % 6 % (0-9); NEUT % 57 % (31-73); PLATELET COUNT 216 x10^3/uL (140-400); RED BLOOD COUNT 5.17 x10^6/uL (3.50-5.40); RED CELL DISTRIBUTION WIDTH 14.7 % (11.5-14.5); WHITE BLOOD COUNT 7.1 x10^3/uL (4.0-11.0)
--- NOTE | 2019-09-04 11:43 | RAD ---
PORTABLE CHEST 1V Clinical indications: Chest pain. COMPARISON: March 06, 2018. Findings: No acute lung infiltrate or pleural effusion or pulmonary edema or lung mass or pneumothorax is seen. The heart size, pulmonary vasculature, mediastinum and both dorys are unremarkable. Impression: No acute radiographic abnormality is seen. Electronically signed by: Cheikh Ramos MD (09/04/2019 11:40 AM) [id number]
[2019-09-04 11:47] LABS: CALCIUM 8.9 mg/dL (8.5-10.1); CREATININE 0.7 mg/dL (0.6-1.0); GFR 89.7
[2019-09-04 11:53] LABS: ALBUMIN 3.6 g/dL (3.4-5.0); ALBUMIN/GLOBULIN RATIO 1.2 (1.0-1.7); MAGNESIUM 1.7 mg/dL (1.8-2.4); TOTAL BILIRUBIN 0.5 mg/dL (0.2-1.0); TOTAL PROTEIN 6.6 g/dL (6.4-8.2)
[2019-09-04 12:00] LABS: CREATINE KINASE 46 U/L (26-192)
[2019-09-04 12:52] VITALS: BP 118/74
== END 2019-09-04 13:20 | disposition home or self-care (01) ==
LOC: ER 10:48
DX: R07.2 Precordial pain (principal); J45.909 Unspecified asthma, uncomplicated; E11.9 Type 2 diabetes mellitus without complications; I10 Essential (primary) hypertension; E78.00 Pure hypercholesterolemia, unspecified; Z91.018 Allergy to other foods
CPT/HCPCS: 36415; 71045; 80053; 82553; 83690; 83735; 83880; 84443; 84484; 85025; 85379; 93005; 99285-25

== ENCOUNTER → 2020-01-02 | Outpatient (CLI) | payer OTHER ==
--- NOTE | 2020-01-02 12:08 | KCIC ---
EXAM: Bilateral digital screening mammogram with tomosynthesis. HISTORY: 49-year-old female presents for screening mammography. TECHNIQUE: Full-field digital craniocaudal and mediolateral oblique 2D and 3D tomosynthesis images of both breasts are obtained for evaluation. Computer aided detection with Pets[employer] software version 9.3 was applied. COMPARISON: 07/16/2017 and 07/16/2016 BREAST PARENCHYMAL DENSITY: Level B - Scattered fibroglandular densities. FINDINGS: There are stable nodular densities within the posterior 2:00 position of the left breast and anterior 1:00 position of the left breast which are associated with biopsy clips. There are additional areas of nodularity within both breasts which are also stable in appearance. There is no new suspicious mass. There is no architectural distortion or suspicious calcification. IMPRESSION: BI-RADS Category 2: Benign finding(s). RECOMMENDATION: Annual mammography is recommended. If your mammogram demonstrates that you have dense breast tissue, which could hide abnormalities, and if you have other risk factors for breast cancer that have been identified, you might benefit from supplemental screening tests that may be suggested by your ordering physician. Dense breast tissue, in and of itself, is a relatively common condition. This information is not provided to cause undue concern, but rather to raise your awareness and to promote discussion with your physician regarding the presence of other risk factors, in addition to dense breast tissue. A report of your mammography results will be sent to you and your physician. You should contact your physician if you have any questions or concerns regarding this report. Mammography is a sensitive method for finding small breast cancers, but it does not detect them all and is not a substitute for careful clinical examination. A negative mammogram does not negate a clinically suspicious finding and should not result in delay in biopsying a clinically suspicious abnormality. PQRS compliance statement - Patient information was entered into a reminder system with a target due date for the next mammogram. "Our facility is accredited by the [employer] Mammography Program." Electronically signed by: Roxana Oliva MD (01/02/2020 12:05 PM) [id number]
== END | disposition home or self-care (01) ==
LOC: KCIC MAMMO 10:19
PROVIDERS: ATTEND Family Medicine
DX: Z12.31 Encounter for screening mammogram for malignant neoplasm of breast (principal); N64.89 Other specified disorders of breast
CPT/HCPCS: 77063; 77067

== ENCOUNTER → 2021-01-21 | Outpatient (CLI) | payer OTHER ==
--- NOTE | 2021-01-21 17:33 | KCIC ---
Bilateral digital screening mammograms with 3-D tomosynthesis: Reason for examination: Routine screening. Comparison is made to previous study dated 08/24/2018 dating back to July 16, 2016 Bilateral mammograms in CC and oblique projections were obtained with 2-D imaging and 3-D tomosynthes is imaging on a Siemens Inspiration unit and reviewed on the workstation. Interpretation was made wit h the benefit of CAD. The skin and nipples show no abnormalities. No abnormal axillary lymph nodes are seen. The breast par enchyma shows scattered fatty and fibroglandular density. (Breast density: Category B.) Left breast: New 3 to 4 mm nodular asymmetry in the central breast, posterior depth better appreciate d on the CC projection, This localizes to the 5:30-6:00 position ( lois cc image 18/70). Stable parti ally obscured mass within the posterior 2:00 position and anterior 1:00 position with associated biop sy clips. Right breast:There are no new suspicious masses. No architectural distortion or suspicious calcificat ions. Impression: IMPRESSION: New left breast 3 to 4 mm nodular asymmetry localizing to the 5:30-6:00 position, posteri or depth. BIRADS 0. Additional Imaging required. Recommend further evaluation with targeted left breast ultraso und. Electronically signed by: Srinivasa Corrigan DO (01/21/2021 5:31 PM) [email or web address]
== END ==
LOC: KCIC MAMMO 10:32
PROVIDERS: ATTEND Obstetrics & Gynecology
DX: Z12.31 Encounter for screening mammogram for malignant neoplasm of breast (principal)
CPT/HCPCS: 77063; 77067

== ENCOUNTER → 2021-02-04 | Outpatient (CLI) | payer OTHER ==
--- NOTE | 2021-02-04 14:06 | KCIC ---
Procedure: Targeted left breast ultrasound INDICATION: Screening mammogram shows a new 3 to 4 mm of mass in the central left breast at posterior depth. The patient has a history of previous benign left breast biopsies of masses in the 2:00 posit ion and 1:00 position. COMPARISON: Mammograms from 01/21/2021 and 01/02/2020. Left breast ultrasound from 07/16/2016. FINDINGS: The areas of concern on mammogram were imaged, 4-6 o'clock region. There is an oval hypoechoic circumscribed mass in the 5:30 position, 6 cm from the nipple which measu res 1.5 cm radial by 0.5 cm AP by 1.0 cm antiradial. This has a thin echogenic septation and is likel y due to a fibroadenoma. This mass is stable on mammogram. The tiny circumscribed mass seen posterior to this on mammogram is not visualized on ultrasound. It m ay be difficult to see due to posterior depth and very small size. There is a 4 mm oval hypoechoic mass in the 4:00 position, 4 cm from the nipple, which corresponds to a tiny mass seen on mammogram. No suspicious mass is seen in this region. IMPRESSION: There are multiple small oval circumscribed masses in the left breast which are consisten t with benign lesions. No suspicious breast mass is seen. ASSESSMENT: BI-RADS 2. Benign findings. Recommendation: Routine annual mammogram. Results are given to the patient at time of the examination. Her information will be entered into the reminder system with target recall date for the next mammogram. A reminder letter will be generated. Electronically signed by: Lizz Vinson MD (02/04/2021 2:04 PM) [email or web address]
== END ==
LOC: KCIC US 13:03
PROVIDERS: ATTEND Obstetrics & Gynecology
DX: N63.23 Unspecified lump in the left breast, lower outer quadrant (principal); R92.8 Other abnormal and inconclusive findings on diagnostic imaging of breast
CPT/HCPCS: 76641